=== PATIENT | female | born 1950 | race Caucasian/White ===

== ENCOUNTER 2021-06-01 05:40 | Outpatient (RCR) | payer MEDICARE, OTHER ==
[~2021-06-01] VITALS: Ht 160 cm; Wt 54.8 kg
[2021-06-02] MEDS ORDERED: PANT40GR PO (14:21)
[2021-06-02] MEDS ORDERED: IPR14IN IH (14:21)
== END 2021-06-02 16:54 | disposition home or self-care (01) ==
LOC: PREOP 05:40 → EDSTATUS 11:30 → PREOP 06-02 16:54
PROVIDERS: ATTEND Surgery
DX: Z01.818 Encounter for other preprocedural examination (principal)

== ENCOUNTER → 2021-06-05 | Outpatient (CLI) | payer MEDICARE, OTHER ==
[~2021-06-05] MED LIST: IPR14IN IH; PANT40GR PO
== END ==
LOC: LAB FS 10:02
PROVIDERS: ATTEND Surgery
DX: Z01.812 Encounter for preprocedural laboratory examination (principal); Z20.822 Contact with and (suspected) exposure to COVID-19
CPT/HCPCS: 87635

== ENCOUNTER → 2021-06-08 | Day surgery (SDC) | payer MEDICARE, OTHER ==
[2021-06-08] VITALS (8 sets, daily range): BP systolic 76–146; BP diastolic 48–75
[~2021-06-08] VITALS: Ht 160 cm; Wt 54.8 kg
[~2021-06-08] MED LIST changes: +HURRICAINE EXT TUBE (BENZOCAINE) XX PRN; +LACTATED RINGERS 1,000 ML IV ONE; +LACTATED RINGERS 1,000 ML IV STA; +MIDAZOLAM 2 MG/2 ML (VERSED) VIAL ONE; +PROPOFOL INJECTION 50 ML IV ONE
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
--- NOTE | 2021-06-08 11:51 | Progress Note-Post Operative ---
Post-Operative Progess Note Surgeon (s)/Laborer Salvage (s) Surgeon JING SOTO DO Laborer Salvage: FAHEEM StoverII Pre-Operative Diagnosis GERD, Hx of polyps Post-Operative Diagnosis Gastritis Gastric polyps Esophagitis Colon polyps int hemorrhoids Procedure & Operative Findings Date of Procedure 06/08/21 Procedure Performed/Findings EGD with bx Colonoscopy with snare polypectomy PROCEDURE NOTE: After informed consent was obtained, the patient was brought to the endoscopy suite, placed in bed in left lateral decubitus position. She was administered IV sedation by the COMBINATION WELDER who then monitored vitals the entire time, heart rate, blood pressure and pulse ox and the scope was inserted down the mouth through the esophagus into the stomach. Pushed into the stomach, pushed past the antrum into the duodenum. Duodenum looked good. Pulled back and noted some Gastritis; did a biopsy of the antrum. Then retroflexed the scope, saw some gastric polyps and took a picture of this. Did not see a hiatal hernia but elected to biopsy one of the polyps. Next pulled the scope into the GE junction, took a picture of the of the GE junction and then did a biopsy here. Pushed the scope back into the stomach, suctioned all the air out of the stomach. At this point pulled the scope up the esophagus and out the mouth. Switched camera, switched gloves, went down below, started the colonoscopy. Pushed all the way into about 140 cm to get all the way to cecum. On the way in noted a polyp in the transverse colon and one in the ascending colon. Removed these with a snare polypectomy. Once in the cecum took a picture of the appendiceal orifice and noted the ileocecal valve. Then slowly withdrew the scope, insufflating to look circumferentially at the badillo; starting in the cecum, up the ascending colon to the hepatic flexure, then down the transverse colon, splenic flexure, into the descending colon, down into the sigmoid and finally into the rectum, retroflexed in the rectal vault, saw some minimal internal hemorrhoids and took a picture of this. The patient tolerated the procedure and she recovered in the endoscopy suite. Anesthesia Type IV sedation by COMBINATION WELDER Estimated Blood Loss Estimated blood loss (mL): scant Specimens/Packing Specimens Removed antral bx gastric polyp GE jxn bx Transverse colon polyp asc colon polyp JING SOTO DO Jun 08, 2021 11:51
--- NOTE | 2021-06-08 11:53 | Endoscopy Discharge Instruct ---
Endo Procedure/Findings Findings 1.: Gastritis 2.: Other Findings (gastric polyp, esophagitis) 3.: Polyp 4.: Internal Hemorrhoids Discharge Instructions - Activity: You might feel a little sleepy until tomorrow. This is due to the medicine you received to relax you. Until tomorrow, you should: NOT drive a car, operate machinery or power tools. NOT drink any alcoholic beverages. NOT make any important decisions or sign importortant papers. Do not return to work until tomorrow, unless otherwise instructed. Resume previous activities tomorrow. Diet: Start by taking liquids. If you tolerate liquids, advance to solid food. 1.: EGD in 3 years 2.: Colonscopy in 5 years Notify Physician - If you experience excessive bleeding, unusual abdominal pain, fever, or chest pain, contact your doctor immediately. JING SOTO DO Jun 08, 2021 11:53
--- NOTE | 2021-06-08 12:44 | Anesthesia-General Post-Op ---
MAC Patient Condition Mental Status/LOC: Same as Preop Cardiovascular: Satisfactory Nausea/Vomiting: Absent Respiratory: Satisfactory Pain: Controlled Complications: Absent Post Op Complications Complications None Follow Up Care/Instructions Patient Instructions None needed. Anesthesiology Discharge Order Discharge Order Patient is doing well, no complaints, stable vital signs, no apparent adverse anesthesia problems. No complications reported per nursing. JOES CRUZ RACHEL CRNA Jun 08, 2021 12:44
== END ==
LOC: ENDO 09:22
PROVIDERS: ATTEND Surgery
DX: Z12.11 Encounter for screening for malignant neoplasm of colon (principal); D12.2 Benign neoplasm of ascending colon; D12.3 Benign neoplasm of transverse colon; K31.7 Polyp of stomach and duodenum; K29.70 Gastritis, unspecified, without bleeding; K21.00 Gastro-esophageal reflux disease with esophagitis, without bleeding; K64.8 Other hemorrhoids; Z79.899 Other long term (current) drug therapy; K44.9 Diaphragmatic hernia without obstruction or gangrene
CPT/HCPCS: 88305